=== PATIENT | male | born 1965 | race Caucasian/White ===

== ENCOUNTER 2017-01-02 13:34 | Day surgery (SDC) | payer MEDICAID ==
[~2017-01-02] VITALS: Ht 182.9 cm; Wt 94.4 kg
[2017-01-02] MEDS ORDERED: DAZIDOX10 MG PO (13:51)
[2017-01-02] MEDS ORDERED: PANCREAZE 437501 ECC PO (13:52)
[2017-01-02] MEDS ORDERED: PHENERGAN 25 TA25 MG (13:52)
[2017-01-02 13:53] VITALS: BP 134/65; PULSE 62; TEMP 98.4
[2017-01-02 15:08] VITALS: BP 122/78; PULSE 64; TEMP 97.4
[2017-01-02 15:30] VITALS: BP 120/75; PULSE 60
[2017-01-02 15:45] VITALS: BP 114/82; PULSE 64
== END 2017-01-02 15:50 | disposition home or self-care (01) ==
LOC: SDCO 13:34
DX: K22.70 Barrett's esophagus without dysplasia (principal); K21.9 Gastro-esophageal reflux disease without esophagitis; G47.30 Sleep apnea, unspecified; R11.2 Nausea with vomiting, unspecified
CPT/HCPCS: J2704; J7030

== ENCOUNTER → 2017-05-07 | Outpatient (CLI) | payer MEDICAID ==
[~2017-05-07] MED LIST: DAZIDOX10 MG PO; PANCREAZE 437501 ECC PO; PHENERGAN 25 TA25 MG
== END ==
LOC: MHCPAIN 13:46
DX: G89.29 Other chronic pain (principal); M47.27 Other spondylosis with radiculopathy, lumbosacral region; F17.200 Nicotine dependence, unspecified, uncomplicated
CPT/HCPCS: G0463

== ENCOUNTER 2017-06-28 23:22 | Emergency (ER) | payer MEDICAID ==
[~2017-06-28] VITALS: Ht 180.3 cm; Wt 90.9 kg
[2017-06-28 23:33] VITALS: TEMP 98.2
[2017-06-28] MEDS ORDERED: RESTORIL30 MG (23:38)
[2017-06-29 00:04] VITALS: BP 129/87; PULSE 74
== END 2017-06-29 00:03 | disposition home or self-care (01) ==
LOC: COL.ER 23:22
DX: S61.412A Laceration without foreign body of left hand, initial encounter (principal); F17.210 Nicotine dependence, cigarettes, uncomplicated; Z87.19 Personal history of other diseases of the digestive system; Z98.890 Other specified postprocedural states; W26.0XXA Contact with knife, initial encounter; Y92.410 Unspecified street and highway as the place of occurrence of the external cause

== ENCOUNTER 2017-09-04 16:41 | Emergency (ER) | payer MEDICAID ==
[~2017-09-04] VITALS: Ht 180.3 cm; Wt 90.9 kg
[~2017-09-04 16:41] MED LIST changes: +RESTORIL30 MG
[2017-09-04 16:43] VITALS: BP 134/92; PULSE 82; TEMP 98.1
[2017-09-04] MEDS ORDERED: FLEXERIL 1010 MG/TAB PO (21:56)
[2017-09-04] MEDS ORDERED: CLEOCIN HCL300 MG PO (23:34)
== END 2017-09-04 17:45 | disposition left against medical advice (07) ==
LOC: COL.ER 16:41
DX: S60.522A Blister (nonthermal) of left hand, initial encounter (principal); S80.222A Blister (nonthermal), left knee, initial encounter

== ENCOUNTER 2017-09-04 21:50 | Emergency (ER) | payer MEDICAID ==
[~2017-09-04] VITALS: Ht 180.3 cm; Wt 90.9 kg
[2017-09-04 21:54] VITALS: BP 136/83; TEMP 98.3
[2017-09-04] MEDS ORDERED: FLEXERIL 1010 MG/TAB PO (21:56)
[2017-09-04 22:42] LABS: BASO % 0.3 % (0.0-2.0); EOS # 0.1 (0.0-0.7); EOS % 1.6 % (0-4.0); GRAN # 3.5 (1.4-6.5); GRAN % 56.6 % (42.2-75.2); HEMATOCRIT 42.7 % (42.0-52.0); HEMOGLOBIN 14.5 g/dl (13.5-18.0); LYMPH # 1.8 (1.2-3.4); LYMPH % 29.3 % (20.0-51.0); MEAN CELL VOLUME 89 fl (80.0-100.0); MEAN CORPUSCULAR HEMOGLOBIN 30 pg (27.0-31.0); MEAN CORPUSCULAR HGB CONC 34 g/dl (33.0-37.0); MEAN PLATELET VOLUME 9.4 fl (7.4-10.4); MONO # 0.7 (0.1-0.6); MONO % 11.9 % (1.7-9.3); PLATELET COUNT 173 K/mm3 (130-400); RED BLOOD COUNT 4.79 M/mm3 (4.20-5.60); WHITE BLOOD COUNT 6.2 K/mm3 (4.8-10.8)
[2017-09-04 22:53] LABS: C-REACTIVE PROTEIN 1.1 mg/dL (0.0-0.9); CALCIUM 8.5 mg/dL (8.4-10.2); CREATININE, serum 0.73 mg/dL (0.66-1.25); POTASSIUM 4.1 mmol/L (3.4-5.0)
[2017-09-04 23:10] LABS: ERYTHROCYTE SEDIMENTATION RATE 13 mm/hr (0-15)
[2017-09-04] MEDS ORDERED: CLEOCIN HCL300 MG PO (23:34)
[2017-09-04 23:55] VITALS: PULSE 76
== END 2017-09-04 23:56 | disposition home or self-care (01) ==
LOC: COL.ER 21:50
PROVIDERS: Emergency Medicine
DX: L03.116 Cellulitis of left lower limb (principal); S81.002A Unspecified open wound, left knee, initial encounter

== ENCOUNTER 2018-01-09 20:50 | Emergency (ER) | payer MEDICAID ==
[~2018-01-09] VITALS: Ht 180.3 cm; Wt 97.7 kg
[~2018-01-09 20:50] MED LIST changes: +CLEOCIN HCL300 MG PO; +FLEXERIL 1010 MG/TAB PO
[2018-01-09 20:53] VITALS: BP 130/88; TEMP 98.7
[2018-01-09] MEDS ORDERED: DOXYCYCLINE 10100 MG PO (21:09)
[2018-01-09 21:45] VITALS: PULSE 90
== END 2018-01-09 21:45 | disposition home or self-care (01) ==
LOC: COL.ER 20:50
DX: S30.860A Insect bite (nonvenomous) of lower back and pelvis, initial encounter (principal); G89.29 Other chronic pain; M54.5 Low back pain; L03.312 Cellulitis of back [any part except buttock and flank]; F17.210 Nicotine dependence, cigarettes, uncomplicated; Z98.890 Other specified postprocedural states

== ENCOUNTER → 2018-02-21 | Outpatient (CLI) | payer MEDICAID ==
[~2018-02-21] MED LIST changes: +DOXYCYCLINE 10100 MG PO
== END ==
LOC: COL.RAD 10:30
DX: M47.816 Spondylosis without myelopathy or radiculopathy, lumbar region (principal)

== ENCOUNTER 2018-10-24 19:44 | Emergency (ER) | payer MEDICAID ==
[~2018-10-24] VITALS: Ht 180.3 cm; Wt 100.0 kg
[2018-10-24 19:47] VITALS: BP 122/80; PULSE 97; TEMP 97.6
== END 2018-10-24 22:12 | disposition left against medical advice (07) ==
LOC: COL.ER 19:44
DX: R10.9 Unspecified abdominal pain (principal)